=== PATIENT | male | born 1995 | race Two or more races ===

== ENCOUNTER 2016-08-15 02:12 | Emergency (ER) | payer MEDICAID, OTHER ==
[~2016-08-15] VITALS: Ht 177.8 cm; Wt 88.0 kg
[2016-08-15 02:21] VITALS: BP 141/98
== END 2016-08-15 03:40 | disposition home or self-care (01) ==
LOC: ER 02:12 → EDBD 02:12 → ER 03:40
DX: F12.929 Cannabis use, unspecified with intoxication, unspecified (principal); F41.9 Anxiety disorder, unspecified